=== PATIENT | female | born 1955 | race Two or more races ===

== ENCOUNTER 2019-02-02 13:53 | Emergency (ER) | payer OTHER ==
[~2019-02-02] VITALS: Ht 162.6 cm; Wt 75.0 kg
[2019-02-02] MEDS ORDERED: SERT50TA12 PO (14:19)
[2019-02-02] MEDS ORDERED: TRAZ-252 PO (14:19)
[2019-02-02] MEDS ORDERED: LORazepam 1 MG TABLET PO ONE (14:30)
[2019-02-02 15:42] VITALS: BP 115/67
== END 2019-02-02 15:59 | disposition home or self-care (01) ==
LOC: EMS 13:56
DX: F41.9 Anxiety disorder, unspecified (principal); F32.9 Major depressive disorder, single episode, unspecified; Z79.899 Other long term (current) drug therapy; Z88.0 Allergy status to penicillin; Z88.6 Allergy status to analgesic agent